=== PATIENT | female | born 1960 | race Caucasian/White ===

== ENCOUNTER 2024-05-01 12:33 | Outpatient (OUT) | payer BC, SELFPAY ==
[2024-05-01 13:40] LABS: Thyroid Stimulating Hormone 4.594 uIU/mL (0.358-3.740)
[2024-05-01 13:42] LABS: Free T4 1.01 ng/dL (0.76-1.46)
== END 2024-05-01 12:34 | disposition home or self-care (01) ==
PROVIDERS: PCP Family Medicine; Visit Provider Family Medicine
DX: E03.9 Hypothyroidism, unspecified (principal)
CPT/HCPCS: 36415; 84439; 84443